=== PATIENT | male | born 1960 | race Caucasian/White ===

== ENCOUNTER → 2020-12-18 | Outpatient (CLI) | payer BC ==
[~2020-12-18] MED LIST: DOXYCYCLINE HY100 M2 IV; DOXYCYCLINE HY100 MG PO; LEVAQUIN500 MG PO; TRIAMTERENE-HC1 EAC2 PO
== END ==
LOC: MRI 07:55
PROVIDERS: ATTEND Specialist
DX: M23.91 Unspecified internal derangement of right knee (principal)